=== PATIENT | male | born 1975 | race Caucasian/White ===

== ENCOUNTER 2018-06-08 14:08 | Emergency (ER) | payer OTHER ==
--- NOTE | 2018-06-08 15:09 | CPEKG ---
Test Reason : OPEN Blood Pressure : / mmHG Vent. Rate : 045 BPM Atrial Rate : 046 BPM P-R Int : 146 ms QRS Dur : 097 ms QT Int : 465 ms P-R-T Axes : 043 086 075 degrees QTc Int : [address] elev, probable normal early repol pattern Confirmed by Duane Herrera ([id number]) on 06/08/2018 3:08:46 PM Referred By: PHYSICIAN ED Confirmed By:Duane Herrera
--- NOTE | 2018-06-08 15:12 | EDPHY ---
H & P Time Seen by Provider: 06/08/18 14:46 HPI/ROS: CHIEF COMPLAINT: Left-sided chest pain HISTORY OF PRESENT ILLNESS: 42-year-old man has history of a traumatic brain injury and chronic pain in multiple areas, presents with chest pain which started at 7:00 a.m. Today On the left side. He says it is sharp hurts worse with respiration. Does not radiate. Not associated with nausea vomiting diarrhea or cough. No recent injury or trauma. He does have very slight central red rash noticed today. It is on his chest in the center. No fever or chills. REVIEW OF SYSTEMS: Eye: Describes intermittent decrease in vision in his left eye over the last 2 weeks. ENT: No sore throat, cracked tooth in his lower left jaw a week ago, has hypersensitivity in the left side of his face. Cardiac: no chest pain or syncope Pulmonary: no cough or SOB Abdomen: no vomiting, diarrhea, abdominal pain Musculoskeletal: No leg swelling, has chronic back and neck pain Skin: no rash Neuro: Has intermittent migraine headaches, today has worsening left-sided facial pain like "ice pick in my ear" that is been going on since before May 23 when he last saw his primary care doctor diagnosed him with cluster migraine. Constitutional: no fever : no urinary symptoms A comprehensive 10 point review of systems is otherwise negative aside from elements mentioned in the history of present illness. PAST MEDICAL HISTORY: Traumatic brain injury as above, spinal injuries, seizure disorder Social history: Here with a friend, Dr. Avila patient. General Appearance: Alert and conversant, cooperative. Eyes: No scleral icterus. Pupils equal reactive extraocular motion intact. Visual bhat intact to confrontation and can count fingers. No proptosis. No chemosis on the cornea. Ophthalmoscope exam is normal at bedside. ENT, Mouth: Normal mucous membranes. Normal tympanic membranes. No dental tenderness. No trismus. No gum swelling. Respiratory: Normal respiratory effort, breath sounds equal, lungs are clear to auscultation. Cardiovascular: Regular rate and rhythm. Gastrointestinal: Abdomen is soft and non tender. Neurological: Alert, face symmetric, normal motor and sensory in extremities. He does say he has some slightly decreased motor function in both upper extremities but has good linseed oil boiler. Speech fluent. Skin: Very slight red rash in the center of his chest 2 cm diameter not petechial or purpura or vesicular. Musculoskeletal: No peripheral edema. Neck supple. Psychiatric: Not agitated. Emergency Department course/MDM: Plan for EKG chest x-ray D-dimer and troponin. Sedimentation rate. Consult with his primary care physician. 1533: discussed with Edda blanc Austin about his symptoms/discussion. 1602: Discussed with Dr. Mirza legal consultant neurologist. Recommends MRI brain with and without contrast, discussed with the patient and consented. At this time I think that the patient does not have high risk for acute emergent source for his chest pain. He does have episodes of some bradycardia into the range of about 40 beats per minute but strips show he is still in sinus , the patient also does not have syncope or near syncope. 1800: negative MRI brain per Elie. Results discussed with the patient, he is comfortable going home and following with primary care doctor, declined any additional pain medication in the emergency department. Smoking Status: Current some day smoker Constitutional: Initial Vital Signs Temperature (C) 37.0 C 06/08/18 14:12 Heart Rate 59 L 06/08/18 14:12 Respiratory Rate 18 06/08/18 14:12 Blood Pressure 127/79 H 06/08/18 14:12 O2 Sat (%) 99 06/08/18 14:12 O2 Delivery Mode Room Air Allergies/Adverse Reactions: lorazepam [From Ativan] Allergy (Verified 06/08/18 15:20) phenytoin sodium [From Dilantin] Allergy (Verified 06/08/18 15:20) phenytoin sodium extended [From Dilantin] Allergy (Verified 06/08/18 15:20) Home Medications: Medication Instructions Recorded Clonopin Dose [facility] 09/22/11 Fentanyl Dose [facility] 09/22/11 Oxycodone Dose [facility] 09/22/11 Oxycontin Dose [facility] 09/22/11 Xanax Dose [facility] 09/22/11 Medical Decision Making - Diagnostics EKG Interpretation: 12-lead EKG interpreted by me; official reading is in computer system. My interpretation is sinus rhythm rate 45 with early repolarization no acute ischemic changes. Imaging Results: Imaging Impressions Chest X-Ray 06/08/18 15:08 Impression: Clear lungs. No acute cardiopulmonary process. Brain MRI 06/08/18 16:14 Impression: 1. Mild sinusitis. 2. Otherwise normal MRI of the brain without and with contrast. 3. No acute infarct, acute hemorrhage, hydrocephalus, or enhancing lesions. Findings and recommendations discussed with Emergency Department physician, KAVITA KELSEY at 17:47 hour, 06/08/2018. Final report concurs with initial preliminary interpretation. Imaging: Discussed imaging studies w/ planning and analysis manager Radiologist Differential Diagnosis: Differential diagnosis considered for chest pain including but not limited to myocardial ischemia, aortic dissection, pericarditis, pulmonary embolus, chest wall pain, pleural inflammation and pulmonary infectious causes. - Data Points Laboratory Results: Laboratory Results 06/08/18 14:45 06/08/18 14:45 06/08/18 06/08/18 06/08/18 14:50 14:45 14:45 WBC RBC Hgb Hct MCV MCH MCHC RDW Plt Count MPV Neut % (Auto) Lymph % (Auto) [place] % (Auto) Eos % (Auto) Baso % (Auto) Nucleat RBC Rel Count Absolute Neuts (auto) Absolute Lymphs (auto) Absolute Monos (auto) Absolute Eos (auto) Absolute Basos (auto) Absolute Nucleated RBC Immature Gran % Immature Gran # ESR D-Dimer < 0.27 ug/mLFEU ug/mLFEU (0.00-0.50) Sodium 139 mEq/L mEq/L (135-145) Potassium 4.2 mEq/L mEq/L (3.5-5.2) Chloride 101 mEq/L mEq/L (97-110) Carbon Dioxide 29 mEq/l mEq/l (22-31) Anion Gap 9 mEq/L mEq/L (6-14) BUN 8 mg/dL mg/dL (7-23) Creatinine 0.7 mg/dL mg/dL (0.7-1.3) Estimated GFR > 60 Glucose 114 mg/dL H mg/dL (70-100) Calcium 9.5 mg/dL mg/dL (8.5-10.4) POC Troponin I 0.01 ng/mL ng/mL (0.00-0.08) 06/08/18 14:45 WBC 3.53 10^3/uL L 10^3/uL (3.80-9.50) RBC 5.34 10^6/uL 10^6/uL (4.40-6.38) Hgb 15.4 g/dL g/dL (13.7-17.5) Hct 45.2 % % (40.0-51.0) MCV 84.6 fL fL (81.5-99.8) MCH 28.8 pg pg (27.9-34.1) MCHC 34.1 g/dL g/dL (32.4-36.7) RDW 12.9 % % (11.5-15.2) Plt Count 208 10^3/uL 10^3/uL (150-400) MPV 9.5 fL fL (8.7-11.7) Neut % (Auto) 68.9 % % (39.3-74.2) Lymph % (Auto) 19.8 % % (15.0-45.0) [place] % (Auto) 7.6 % % (4.5-13.0) Eos % (Auto) 2.8 % % (0.6-7.6) Baso % (Auto) 0.6 % % (0.3-1.7) Nucleat RBC Rel Count 0.0 % % (0.0-0.2) Absolute Neuts (auto) 2.43 10^3/uL 10^3/uL (1.70-6.50) Absolute Lymphs (auto) 0.70 10^3/uL L 10^3/uL (1.00-3.00) Absolute Monos (auto) 0.27 10^3/uL L 10^3/uL (0.30-0.80) Absolute Eos (auto) 0.10 10^3/uL 10^3/uL (0.03-0.40) Absolute Basos (auto) 0.02 10^3/uL 10^3/uL (0.02-0.10) Absolute Nucleated RBC 0.00 10^3/uL 10^3/uL (0-0.01) Immature Gran % 0.3 % % (0.0-1.1) Immature Gran # 0.01 10^3/uL 10^3/uL (0.00-0.10) ESR 1 MM/HR MM/HR (0-15) D-Dimer Sodium Potassium Chloride Carbon Dioxide Anion Gap BUN Creatinine Estimated GFR Glucose Calcium POC Troponin I Point of Care Test Results: Chemistry 06/08/18 14:50 POC Troponin I 0.01 ng/mL ng/mL (0.00-0.08) Departure - Departure Disposition: Home, Routine, Self-Care Clinical Impression: Chest pain Qualifiers: Chest pain type: unspecified Qualified Code(s): R07.9 - Chest pain, unspecified Condition: Good Instructions: Chest Pain (ED) Additional Instructions: Please follow-up with your primary care clinic tomorrow. Please follow-up with neurologist next week in the office, Dr. Mirza. Referrals: Joseph Avila DO [Primary Care Provider] - As per Instructions Jhony Mirza DO [Medical Doctor] - As per Instructions
[2018-06-08 15:21] LABS: PLATELET COUNT 208 10^3/uL (150-400)
[2018-06-08] MEDS ORDERED: GADOBUTROL 10 ML VIAL IVP ONE (17:09)
[2018-06-08 18:39] VITALS: BP 119/72
--- NOTE | 2018-06-09 18:33 | CPEKG ---
Test Reason : OPEN Blood Pressure : / mmHG Vent. Rate : 036 BPM Atrial Rate : 000 BPM P-R Int : 130 ms QRS Dur : 098 ms QT Int : 523 ms P-R-T Axes : 060 078 071 degrees QTc Int : 405 ms Sinus bradycardia Confirmed by Valery Ly ([id number]) on 06/09/2018 6:32:36 PM Referred By: KAVITA KELSEY Confirmed By:Valery Ly
== END 2018-06-08 18:39 | disposition home or self-care (01) ==
LOC: EEVIPCON 14:08
DX: R07.89 Other chest pain (principal); G89.29 Other chronic pain; J32.9 Chronic sinusitis, unspecified
CPT/HCPCS: 70553; 71046; 93005; 99285; A9585; 84484-ER